=== PATIENT | male | born 1995 | race Caucasian/White ===

== ENCOUNTER 2019-07-12 19:27 | Emergency (ER) | payer SELFPAY ==
[~2019-07-12] VITALS: Ht 180 cm; Wt 105.7 kg
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
[2019-07-12] MEDS ORDERED: SULF1TAB35 PO (20:03)
[2019-07-12] MEDS ORDERED: RX-HYDROCODONE/APAP 5/325 MG #4 TAB PK PO PRN ×2 (20:15→20:30)
[2019-07-12 20:24] VITALS: BP 128/62
[2019-07-12] MEDS ORDERED: NEO/POLY/BAC (NEOSPORIN) OINT 15 GM TUBE TOP SCH (21:00)
== END 2019-07-12 20:24 | disposition home or self-care (01) ==
LOC: EDUNIT# 19:27 → ER FS 19:29
DX: S61.432A Puncture wound without foreign body of left hand, initial encounter (principal); Z88.1 Allergy status to other antibiotic agents; W34.00XA Accidental discharge from unspecified firearms or gun, initial encounter
CPT/HCPCS: 73130

== ENCOUNTER 2019-08-01 04:08 | Emergency (ER) | payer SELFPAY ==
[~2019-08-01] VITALS: Ht 178 cm; Wt 90.9 kg
[~2019-08-01 04:08] MED LIST: SULF1TAB35 PO
[2019-08-01] MEDS ORDERED: BSS 15 ML IR ONE (04:30)
[2019-08-01] MEDS ORDERED: FLUORESCEIN (FLUOR-I-STRIPS) 1 MG STRP OU ONE (04:30)
[2019-08-01] MEDS ORDERED: TETRACAINE 0.5% OPHTH SOLN 4 ML BTL (SINGLE DOSE ONLY) OU ONE (04:30)
[2019-08-01] MEDS ORDERED: RX-OFLOXACIN 0.3% OPHTH SOLN 5 ML ONE (04:51)
--- NOTE | 2019-08-01 04:59 | ED EENT ---
History of Present Illness General Chief Complaint: Foreign Body Stated Complaint: METAL SHAVING IN LEFT EYE Nursing Triage Note: pt reports possible metallic f.b. to left eye when grinding on metal on 07/30/19. Source: patient Exam Limitations: no limitations History of Present Illness Date Seen by Provider: Aug 01, 2019 Time Seen by Provider: 04:15 Initial Comments This 23-year-old young man presents to the emergency room with foreign body in the left eye. He was grinding metal on July 30 when some debris bounced off his cheek and up under the safety glasses. Since then he has had increasing irritation and sensitivity to light. He noted a foreign body stuck in the co rnea at about the 3 o'clock position of the right thigh. It is over the iris and does not cross over the pupil. Allergies and Home Medications Allergies Coded Allergies: amoxicillin (Verified Allergy, Severe, 07/12/19) Home Medications Sulfamethoxazole/Trimethoprim 1 Each Tablet, 1 EACH PO BID Prescribed by: ZAC WAKEFIELD on 07/12/192002 Patient Home Medication List Home Medication List Reviewed: Yes Review of Systems Review of Systems Constitutional: no symptoms reported Eyes: See HPI Ears: No Symptoms Reported Nose: no symptoms reported Mouth: no symptoms reported Throat: no symptoms reported Respiratory: no symptoms reported Skin: see HPI Neurological: See HPI Past Lhaundz-Eregse-Xpogus Hx Past Med/Social Hx: Reviewed Nursing Past Med/Soc Hx Patient Social History Alcohol Use: Denies Use Recreational Drug Use: No Smoking Status: Current Everyday Smoker Type Used: Cigarettes 2nd Hand Smoke Exposure: No Recent Foreign Travel: No Contact w/Someone Who Travel: No Recent Infectious Disease Expo: No Recent Hopitalizations: No Physical Abuse: No Sexual Abuse: No Mistreated: No Fear: No Immunizations Up To Date Tetanus Booster (TDap): Less than 5yrs Seasonal Allergies Seasonal Allergies: No Past Medical History Surgeries: Yes (bmt) Tonsillectomy Respiratory: No Cardiac: No Neurological: No Genitourinary: No Gastrointestinal: No Musculoskeletal: Yes Scoliosis Endocrine: No HEENT: No Cancer: No Psychosocial: No Integumentary: No Blood Disorders: No Physical Exam Vital Signs Vital Signs - First Documented 08/01/19 04:16 Temp 36.6 Pulse 93 Resp 16 B/P (MAP) 130/65 (86) Pulse Ox 99 O2 Delivery Room Air Height, Weight, BMI Height: '" Weight: lbs. oz. 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 II-XII nml as tested, no motor/sensory deficits, alert, normal mood/affect, oriented x 3 Skin: normal color, warm/dry Progress/Results/Core Measures Results/Orders My Orders Orders - KIERSTEN ANN MD Tetracaine 0.5% Ophth Tiffany Sdv (Tetracai (08/01/19 04:30) Fluorescein Strips ([id number]-Ykrnjg) (08/01/19 04:30) Balanced Salt Irrigation Soln (Bss Irrig (08/01/19 04:30) Rx-Ofloxacin 0.3% Ophth Soln (Rx-Ocuflox (08/01/19 08:00) Rx-Ofloxacin 0.3% Ophth Soln (Rx-Ocuflox (08/01/19 04:51) Medications Given in ED Current Medications Medications Dose Ordered Sig/Keyanna Route Start Time Stop Time Status Last Admin Dose Admin Balanced Salt Solution 15 ml ONCE ONCE IR 08/01/19 04:30 08/01/19 04:31 DC 08/01/19 04:24 15 ML Fluorescein Sodium 1 mg ONCE ONCE OU 08/01/19 04:30 08/01/19 04:31 DC 08/01/19 04:24 1 MG Tetracaine HCl 4 ml ONCE ONCE OU 08/01/19 04:30 08/01/19 04:31 DC 08/01/19 04:24 4 ML Vital Signs/I&O 08/01/19 08/01/19 04:16 05:00 Temp 36.6 36.6 Pulse 93 93 Resp 16 16 B/P (MAP) 130/65 (86) 130/65 (86) Pulse Ox 99 99 O2 Delivery Room Air Blood Pressure Mean: 86 POS Progress Progress Note : Progress Note I was anesthetized with tetracaine drops. Floor seen exam was then performed. There is metallic foreign body noted over the iris with no other abrasions or foreign bodies. Attempt was made to lift the metallic foreign body with a cotton swab. This was unsuccessful. Removal of debris was again attempted by lifting with a hypodermic needle. The debris fragmented and a portion of the foreign body was limited and then washed out with irrigation. A deeper portion of the foreign body remained. Case was discussed with Dr. cui who has graciously agreed to meet the patient in the clinic at 09:00. She recommended starting antibiotic drops in the meantime. A take-home pack was provided. Have also provided tetracaine diluted into balanced saline solution to help with comfort in the meantime. Departure Impression Primary Impression: Foreign body of left eye Qualified Codes: T15.92XA - Foreign body on external eye, part unspecified, left eye, initial encounter Disposition: HOME, SELF-CARE Condition: Improved Departure-Patient Inst. Decision time for Depature: 04:50 Referrals: ZOE WASHBURN OD,LOCAL PHYSICIAN (PCP) Primary Care Physician Patient Instructions: Foreign Body in Eye Add. Discharge Instructions: Avoid rubbing on your eye. Place 2 drops of the antibiotic into your left eye every 2 hours. Bring these drops with you to the appointment. You may also use a few drops of the diluted tetracaine numbing solution as often as needed for comfort. Please meet Dr. Cui at [facility] at 9:[address] Cui at [phone] if you have emergent needs before you see her. All discharge instructions reviewed with patient and/or family. Voiced understanding. Copy Copies To 1: ZOE WASHBURN OD, JOSHUA T MD Aug 01, 2019 04:59 POS
[2019-08-01 05:00] VITALS: BP 130/65
[2019-08-01] MEDS ORDERED: RX-OFLOXACIN 0.3% OPHTH SOLN 5 ML OP SCH (08:00)
== END 2019-08-01 05:00 | disposition home or self-care (01) ==
LOC: EDUNIT# 04:08 → ER 04:10
DX: T15.92XA Foreign body on external eye, part unspecified, left eye, initial encounter (principal); F17.210 Nicotine dependence, cigarettes, uncomplicated; Z88.1 Allergy status to other antibiotic agents; Z90.89 Acquired absence of other organs
CPT/HCPCS: 99283